=== PATIENT | male | born 1990 | race Caucasian/White ===

== ENCOUNTER → 2018-11-27 14:08 | Outpatient (CLI) | payer OTHER, SELFPAY ==
[2015-01-14 20:14] VITALS: BMI 41.5
== END ==
PROVIDERS: Family Provider Family Medicine; PCP Family Medicine; Referring Provider Obstetrics & Gynecology; Visit Provider Obstetrics & Gynecology
DX: Z31.440 Encounter of male for testing for genetic disease carrier status for procreative management (principal)
CPT/HCPCS: 36415

== ENCOUNTER 2021-09-08 20:01 | Emergency (ER) | payer BC, SELFPAY ==
[2021-09-08 20:02] VITALS: BP 157/91; PULSE 14; RESP 97; TEMP 527.7; TEMP 982; O2SAT 97; BMI 40.1
[2021-09-08 20:58] LABS: Bacteria 0 SEEN /hpf (None Seen); Mucous, Urine 0 SEEN /hpf (<or=2+); Red Blood Cells-Urine 0 SEEN /hpf (0-5); Squamous Epithelial Cells - UA 0 SEEN /hpf (0-5); White Blood Cells 0 SEEN /hpf (0-5)
[2021-09-08 21:00] LABS: Color, Urine Yellow (Yellow); Glucose, Dipstick Normal (Normal); Ketone-Dipstick Negative (Negative); Leukocyte Esterase-Dipstick Negative /ul (Negative); Nitrite-Dipstick Negative (Negative); Occult Blood-Urine Negative /ul (Negative); Protein-Dipstick Negative (Negative); Urine Bilirubin Dipstick Negative (Negative); Urine Clarity Clear (Clear); Urine Urobilinogen Normal (Normal)
[2021-09-08 21:03] LABS: Absolute Lymphocyte Count 2.74 X10^3/uL (0.83-4.51); Absolute Neutrophil Count 8.6 X10^3/uL (2.0-7.7); Basophil# 0.04 X10^3/uL; Basophil% 0.3 % (0-1); Eosinophil# 0.12 X10^3/uL; Hematocrit 46.1 % (40-54); Hemoglobin 16.1 g/dL (13.0-16.5); Lymphocyte # 2.74 X10^3/ul (0.83-4.51); Lymphocyte % 22.5 % (19-41); Mean Corp Hgb Conc 34.9 g/dL (32-36); Mean Corpuscular Hgb 29.8 pg (27.0-32.0); Mean Corpuscular Volume 85.4 fL (80-94); Mean Platelet Vol. 9.6 fl (6.2-12.0); Monocyte% 5.7 % (0-10); NRBC Flagged by Analyzer 0 % (0-5); Neutrophil # 8.55 X10^3/uL (2.7-7.7); Neutrophil % 70.2 % (47-70); Platelet Count 250 K/mm3 (150-450); RBC Distribution Width CV 12.8 % (11.6-14.6); RBC Distribution Width SD 39.4 fl (35.1-43.9); White Blood Count 12.2 K/mm3 (4.4-11.0)
[2021-09-08 21:16] LABS: Anion Gap 6 (5-15); BUN 10 mg/dL (7-18); BUN/Creat Ratio 12.4 RATIO (10-20); Calcium,Total 9.2 mg/dL (8.5-10.1); Chloride 109 mmol/L (98-107); EST Glomerular Filtration Rate 119 mL/min (>60); Est Glom Filt Rate - Afr Amer 143 mL/min (>60); Estimated Creatinine Clearance 129.44 ml/min; Glucose 110 mg/dL (74-106); Potassium 3.6 mmol/L (3.5-5.1); Sodium Level 140 mmol/L (136-145)
[2021-09-08] MEDS: Cephalexin 250 MG Capsule 500 MG PO (21:36)
--- NOTE | 2021-09-08 21:46 | EDS_ITS ---
HPI History of Present Illness Chief Complaint: Complaint Informant: patient Onset/Context/Timing Onset: Days Quality: Urinary frequency Worsened by: Possibly caffeine intake Relieved by: Nothing Associated Symptoms Associated Symptoms: Constipation for today only Narrative Narrative: Patient has an ongoing issue with urinary frequency for several days. No pain. No discharge. No rashes or lesions. No history of STD or STD symptoms. No bleeding. No history of kidney, prostate, bladder issues. He had some constipation today but no prior issues. No pain in his rectum. No bleeding. No fever or systemic symptoms. No history of diabetes. Prior similar symptoms: No Recent Illness/Hospitalization: No PFSH PFSH Home Medications cephalexin 500 mg PO Q6 #20 capsule 09/08/21 [Rx Last Taken Unknown] Allergy/AdvReac Type Severity Reaction Status Date / Time No Known Allergies Allergy Verified 09/08/21 20:12 Surgical History (Updated 09/08/21 @ 20:13 by Alissa Maurer) Hx of appendectomy Social History Smoking Status: Current every day smoker tobacco type: cigarettes ROS ROS ED Constitutional Constitutional ED: Denies chills or fever(s) Eyes Eyes: Denies change in vision ENT ENT ED: Denies ear pain Cardiovascular Cardiovascular: Denies chest pain Respiratory/Chest Respiratory/Chest: Denies dyspnea Gastrointestinal Gastrointestinal: Reports constipation; Denies abdominal pain, diarrhea, nausea or vomiting Genitourinary Genitourinary ED: Reports urinary frequency; Denies dysuria or hematuria Musculoskeletal Musculoskeletal: Denies arthralgias, back pain, myalgias or neck pain Integumentary Denies rash Neurologic Neurologic: Denies headache(s) Psychiatric Psychiatric: Denies depression Endocrine Endocrinology: Reports polyuria; Denies polydipsia or polyphagia Allergic/Immunologic Allergic/Immunologic ED: Denies urticaria EXAM Physical Exam Const Vital Signs: 09/08/21 20:02 Temperature 982 F H Temperature Source Temporal Pulse Rate 14 L Respiratory Rate 97 H Blood Pressure 157/91 H Blood Pressure Mean 113 Pulse Ox 97 Oxygen Delivery Method Room Air Positive well nourished and well developed General Appearance ED: well developed HEENT Negative for trauma or tenderness Eyes EOMs intact bilaterally Neck No supple Resp normal respiratory effort Cardio regular rate GI normal to inspection, nondistended, normoactive bowel sounds, non-tender and non-distended Palpation: soft Extremity normal to inspection General Extremety ED: Negative for edema or tenderness General Extremity: Negative for edema Neuro oriented x3 Sensorium / Orientation: alert Psych mental status grossly normal Skin no rashes or lesions noted MDM MDM MDM Narrative Medical decision making narrative: Patient had a white count of 12.2. This was incidental and nonspecific. His urine does not show any signs of infection. He does not have typical symptoms of infection. I did send a culture and will cover with antibiotics after further discussion with him. He had some cons tipation but only for today and no other GI symptoms. He can use [id number] [id number] if he has continued constipation. Metabolic panel was unremarkable. His kidney function is normal. He is not dehydrated. Not hyperglycemic. I believe he is appropriate for outpatient work-up. Stay hydrated. Avoid caffeine. He is not on any medications that would make him urinate. He should return for any new or worsening issues. Disposition is discharged home. Impression #1 urinary frequency Lab Data Attestation: I reviewed the patient's lab results. Labs: Laboratory Results - last 24 hr 09/08/21 09/08/21 09/08/21 20:10 20:55 20:55 WBC 12.2 H RBC 5.40 Hgb 16.1 Hct 46.1 MCV 85.4 MCH 29.8 MCHC 34.9 RDW Std Deviation 39.4 RDW Coeff of [place] 12.8 Plt Count 250 MPV 9.6 Immature Gran % (Auto) 0.300 Neut % (Auto) 70.2 H Lymph % (Auto) 22.5 [place] % (Auto) 5.7 Eos % (Auto) 1.0 Baso % (Auto) 0.3 Absolute Neuts (auto) 8.6 H Absolute Lymphs (auto) 2.74 Nucleated RBC % 0 Sodium 140 Potassium 3.6 Chloride 109 H Carbon Dioxide 25.0 Anion Gap 6 BUN 10 Creatinine 0.80 Estim Creat Clear Calc 129.44 Est GFR (MDRD) Af Amer 143 Est GFR (MDRD) Non-Af 119 BUN/Creatinine Ratio 12.4 Glucose 110 H Calcium 9.2 Urine Color Yellow Urine Clarity Clear Urine pH 6.0 Ur Specific [place] 1.010 Urine Protein Negative Urine Glucose (UA) Normal Urine Ketones Negative Urine Occult Blood Negative Urine Nitrite Negative Urine Bilirubin Negative Urine Urobilinogen Normal Ur Leukocyte Esterase Negative Urine RBC 0 SEEN Urine WBC 0 SEEN Ur Squamous Epith Cells 0 SEEN Urine Bacteria 0 SEEN Urine Mucus 0 SEEN Discharge Plan Triage Chief Complaint: Complaint ED Provider: Navin Lemos Dx/Rx/DC Orders Instructions: ED Dysuria, Uncertain Cause (Adult) Prescriptions: New cephalexin 500 mg capsule 500 mg PO Q6 Qty: 20 RF: 0 Primary Care Provider: Lacey Staples Referrals: Brian Carroll MD [STAFF PHYSICIAN] - Disposition Disposition: Home, Self Care Discharge Date/Time: 09/08/21 21:37
== END 2021-09-08 21:37 | disposition home or self-care (01) ==
PROVIDERS: Emergency Provider Emergency Medicine; PCP Family Medicine; Visit Provider Emergency Medicine
DX: R35.0 Frequency of micturition (principal); F17.210 Nicotine dependence, cigarettes, uncomplicated
CPT/HCPCS: 80048; 81001; 85025; 87086; 99283